=== PATIENT | male | born 1935 | race Caucasian/White ===

== ENCOUNTER 2016-07-20 21:11 | Inpatient (IN) | payer MEDICARE, OTHER ==
--- NOTE | ~2016-07-20 | HP ---
History And Physical [place] [id number] [facility] [place]. [address] NAME: KARY REID : [id number] STATUS : ADM IN [facility]#: [id number] AGE: 81 ADM/REG DATE : 07/21/16 MR#: [id number] REPORT SERV DATE: 07/21/16 DICTATED BY: MAE CLANCY DATE: 07/21/16 REPORT STATUS : Draft TRANSCRIBED BY: MODL DATE: 07/21/16 DATE OF ADMISSION: 07/20/2016 POINT OF ENTRY: [facility] Emergency Department. PRIMARY ORTHOPEDIC SURGEON: Shakir Allen M.D. CHIEF COMPLAINT: Fevers and right lower extremity erythema and swelling. HISTORY OF PRESENT ILLNESS: Mr. Santiago is an 81-year-old gentleman with history of hypertension, osteoarthritis, and BPH who underwent bilateral total knee arthroplasty with Dr. Allen on 06/22/2016. The patient states his postoperative course was largely uncomplicated. He spent approximately a week and a half at [facility] and then was discharged to home where he continue to work with physical therapy. The patient states he started to notice fevers as well as right lower extremity swelling, erythema, and tenderness beginning about Tuesday. The fevers were as high as 102 to 103 degrees Fahrenheit. The patient notified his orthopedic surgeon Dr. Allen today and was seen in clinic by one of his partners. At that time, the area of erythema and swelling was marked with a marker. The patient underwent arthrocentesis in the office at that time which revealed a grossly bloody fluid and was placed on some oral Duricef for antibiotic treatment. The fluid analysis at that time did reveal grossly bloody fluid with 199,000 red blood cells with 526 nucleated cells. The patient returned to the emergency department as the erythema, swelling, and tenderness involving his right lower extremity spread from the areas marked which was primarily around his knee joint to involve the entire right lower extremity from his ankle joint to his upper thigh. Initial evaluation in the emergency department is notable for evidence of sepsis with a fever of 102.2 degrees Fahrenheit as well as a white count of 17,200. Lactic acid within normal limits. Chest x-ray was clear. Blood cultures were obtained. He was started on vancomycin and admitted to the Hospitalist Service for further evaluation and management. REVIEW OF SYSTEMS: Comprehensive review of systems otherwise negative unless listed in the history of present illness. PREVIOUS MEDICAL HISTORY: 1. Hypertension. 2. Gastroesophageal reflux disease. 3. Osteoarthritis. 4. BPH. PREVIOUS SURGICAL HISTORY: 1. Bilateral total knee, 06/22/[address] Allen. 2. Left total hip. History And Physical [address] [address] NAME: KARY REID : [id number] STATUS : ADM IN PAT#: [id number] AGE: 81 ADM/REG DATE : 07/21/16 MR#: [id number] REPORT SERV DATE: 07/21/16 DICTATED BY: MAE CLANCY DATE: 07/21/16 REPORT STATUS : Draft TRANSCRIBED BY: MODNae DATE: 07/21/16 3. Cervical spinal fusion. 4. Inguinal hernia repair. ALLERGIES: NO KNOWN DRUG ALLERGIES. HOME MEDICATIONS: 1. Norvasc 5 mg daily. 2. Aspirin 325 mg daily. 3. Finasteride 5 mg daily. 4. Hydrochlorothiazide 12.5 mg daily. 5. [place] 5/325 one tab q.4 hours p.r.n. 6. Meloxicam 15 mg daily. 7. Nortriptyline 50 mg at bedtime. 8. Omeprazole 20 mg daily. 9. Flomax 0.4 mg daily. 10.Icma-xmk-wlaahio vitamin. 11.PreserVision 2 tablets daily. SOCIAL HISTORY: Denies any tobacco, alcohol, or illicits. FAMILY MEDICAL HISTORY: Mother with dementia. Father with throat cancer, diabetes. Siblings with diabetes. LABS AND IMAGIN. White count 17.2, hemoglobin is 10.0, hematocrit is 29.4, platelet count is 249, INR is pending. 2. Sodium is 136, potassium 3.9, chloride 102, carbon dioxide 24, BUN 17, creatinine 0.82, glucose is 136, calcium is 8.4, protein is 6.8, albumin is 2.8, bilirubin is 1.1, ALT is 15, AST is 16, alkaline phosphatase is 93. 3. Lactic acid is 0.8. 4. Chest x-ray per my review shows some right lower lobe atelectasis, otherwise no acute cardiopulmonary abnormality. 5. Synovial fluid analysis from earlier arthrocentesis done in [facility]opedic [facility] again shows 199,000 red blood cells per mL as well as 526 nucleated cells per mL with 5% segs, 41% lymphocytes, and 54% mononuclear cells. Initial Gram stain and culture of the arthrocentesis fluid shows rare white blood cells with no organisms seen with culture in progress. PHYSICAL EXAMINATION: VITAL SIGNS: Temperature is 102.2 degrees Fahrenheit, pulse is 89, respirations 22, saturating 96% on room air. Blood pressure is 126/69 on recheck is now 124/70, pulse of 87. GENERAL: The patient is awake, alert, in no acute distress. Resting comfortably. He is a well-developed, well-nourished, elderly male. Family is at bedside. HEENT: Atraumatic and normocephalic. Moist mucous membranes. Pupils are equal, round, reactive to light and accommodation. Extraocular eye movements intact. No scleral icterus. NECK: No jugular venous distention. No carotid bruits. CARDIAC: Regular rate and rhythm. No murmurs rubs or gallops. Normal S1 and S2. History And Physical [address] [address] NAME: KARY REID : 37 STATUS : ADM IN [facility]#: [id number] AGE: 81 ADM/REG DATE : 07/21/16 MR#: [id number] REPORT SERV DATE: 07/21/16 DICTATED BY: MAE CLANCY DATE: 07/21/16 REPORT STATUS : Draft TRANSCRIBED BY: SUBHA DATE: 07/21/16 LUNGS: Clear to auscultation bilaterally. No wheezes, rhonchi, or crackles. ABDOMEN: Soft, nontender, nondistended with good bowel sounds. No rebound, guarding, or rigidity. EXTREMITIES: Left lower extremity is warm and well perfused with no cyanosis, clubbing, or edema. The incision appears to be clean, dry, and intact. Right lower extremity, the patient has 1+ lower extremity edema primarily around the pedal region and distal left lower extremity. He has erythema from the distal right lower extremity spreading proximally involving the area around the knee joint and ending approximately mid to upper thigh region. The patient does have some area of palpable right knee joint effusion. I do not appreciate any palpable fluid collections or crepitus. SKIN: Warm and dry except as noted above. PSYCHIATRIC: Affect is appropriate. NEUROLOGIC: Alert and oriented x3. Cranial nerves II through XII grossly intact. Speech is normal. Gait is not assessed. ASSESSMENT: Mr. Reid is an 81-year-old gentleman about a month status post bilateral total knee arthroplasty, who presents now with a four-day history of fevers and right lower extremity pain, swelling, and erythema concerning for right lower extremity cellulitis as well as prosthetic joint septic arthritis, also with evidence of sepsis. PROBLEM LIST: 1. Sepsis. 2. Right lower extremity cellulitis. 3. Prosthetic joint septic arthritis. 4. Hemarthrosis. PLAN: 1. Sepsis. The patient meets criteria with leukocytosis as well as fevers. Lactic acid within normal limits. We will check a procalcitonin. Follow up blood cultures obtained here in the emergency department as well as provide broad-spectrum IV antibiotics as well as IV fluids. 2. Lower extremity cellulitis. We will continue broad-spectrum antibiotics started here in the emergency department. We will consult Dr. Allen as well as Infectious Diseases for assistance. 3. 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 Given erythema involving the knee area as well as joint effusion with evidence of infection, I am concerned for septic arthritis. The patient did have arthrocentesis done in the office which did reveal minimal nucleated cells; however, culture is pending, and I think it is difficult to interpret the fluid analysis in the setting of such significant hemarthrosis. We will place the patient on broad-spectrum antibiotics of IV vancomycin and Zosyn. Dr. Allen of Orthopedic Surgery is already aware of the patient and will see the patient in the morning. We will also consult ID for assistance. We will obtain a plain film of the right knee as well as lower extremity Doppler to rule out any type of other injuries that could cause effusion as well as rule out DVT as a potential cause of his erythema and lower extremity swelling and pain. 4. Hemarthrosis. Again arthrocentesis in office was concerning for significant bloody fluid removed which was confirmed by synovial fluid analysis. The patient was recently History And Physical [address] [place]. [address] NAME: KARY REID : 37 STATUS : ADM IN [facility]#: [id number] AGE: 81 ADM/REG DATE : 07/21/16 MR#: [id number] REPORT SERV DATE: 07/21/16 DICTATED BY: MAE CLANCY DATE: 07/21/16 REPORT STATUS : Draft TRANSCRIBED BY: SUBHA DATE: 07/21/16 tapered off his Coumadin as DVT prophylaxis. We will hold his aspirin as well as NSAID and place him on TEDs and SCDs for DVT prophylaxis at this time given significant amount of hemarthrosis. We will defer management to Dr. Allen. 5. DVT prophylaxis. TEDs and SCDs as noted above. CODE STATUS: The patient wishes to be full code. JUAN ANTONIO/SUBHA Mae Clancy MD / [id number] CC: MD Shakir Vigil M.D.
--- NOTE | ~2016-07-20 | DS ---
Discharge Summary [facility] [address] [place]. [address] NAME: KARY LOCKE : 37 STATUS : DIS IN PAT#: [id number] AGE: 81 ADM/REG DATE : 07/21/16 MR#: [id number] REPORT SERV DATE: 07/28/16 DICTATED BY: TIFFANIE SANDS DATE: 07/27/16 REPORT STATUS : Draft TRANSCRIBED BY: MODL DATE: 07/27/16 ADMISSION DATE: 07/21/2016 DISCHARGE DATE: 07/27/2016 HISTORY OF PRESENT ILLNESS: The patient is an 81-year-old male with a history of hypertension, BPH, GERD, who presented to the hospital with a complaint of fevers and right lower extremity erythema and swelling. For further details, please refer to H and P dictated by Dr. Santos on 07/21/2016. HOSPITAL COURSE: Upon admission to the hospital, the patient was noted to be septic and was subsequently admitted to the hospital on the Hospitalist Service. It was also noted that his sepsis was likely due to lower extremity cellulitis given his recent orthopedic procedure. Orthopedic Surgery was consulted. The patient was taken by Orthopedic surgery to the OR on 07/22/2016 for right knee aspiration with subsequent open irrigation and debridement of prepatellar bursa which was performed by Dr. Allen. For further details, please refer to operative note dictated by Dr. Allen on 07/22/2016. Given the patient's septic picture in the setting of recent orthopedic procedure, Infectious Disease was consulted to assist with IV antibiotics. For further details, please refer to consultation note dictated by Dr. Ryan on 07/21/2016. After Infectious Disease evaluation, the patient's antibiotic therapy was narrowed by Infectious Disease. The patient has responded well to current antibiotic therapy. The patient has remained hemodynamically stable. Given completion of workup, plan was for patient to be discharged to rehab facility on antibiotic therapy. The patient was ready for discharge yesterday; however, there was no bed availability in the rehab facility that was selected for the patient which is [facility]. Of note, I assumed care of the patient today, 07/27/2016. At the time of my assumption of care, the patient was hemodynamically stable. Plan was already made for the patient to be discharged on IV antibiotics specifically Ancef 2 g IV q.8 hours for 7 days and then Duricef 1 g p.o. for 14 days. Orders were written by Infectious Disease. Medication reconciliation was performed by nurse practitioner for Orthopedic Surgery. From a medical standpoint, the patient has remained hemodynamically stable with resolution of his sepsis. Given completion of workup and given clearance by Infectious Disease, the patient will be discharged to rehab. Plan has been discussed with the patient who voices understanding and is agreeable with this plan. DISCHARGE DIAGNOSES: 1. Sepsis. 2. Leukocytosis. 3. Hypertension. 4. Gastroesophageal reflux disease. 5. Benign prostatic hyperplasia. 6. Status post right knee irrigation and debridement of prepatellar bursa. CONSULTANTS: 1. Tiffanie Allen MD, of Orthopedic Surgery. 2. Arun Ryan MD, of Infectious Disease. Discharge Summary [address] [address] NAME: KARY LOCKE : 37 STATUS : DIS IN PAT#: [id number] AGE: 81 ADM/REG DATE : 07/21/16 MR#: [id number] REPORT SERV DATE: 07/28/16 DICTATED BY: TIFFANIE SANDS DATE: 07/27/16 REPORT STATUS : Draft TRANSCRIBED BY: SUBHA DATE: 07/27/16 DISCHARGE MEDICATIONS: Discharge medications performed by the Orthopedic Service. Please see discharge MAR for further details. DISPOSITION: This patient will be discharged to [facility] for rehab, to follow up with Infectious Disease and Orthopedic Surgery as an outpatient. ACTIVITY: As tolerated. DIET: Regular. Greater than 30 minutes was spent on chart review, coordinating discharge, dictation of note, discussion of case with case management. JAY/SUBHA Tiffanie Sands MD / [id number] CC: MD Hiren Bradshaw MD
--- NOTE | ~2016-07-20 | CN ---
Consultation Report [facility] [address] [place]. [address] NAME: KARY LOCKE : 37 STATUS : ADM IN PAT#: [id number] AGE: 81 ADM/REG DATE : 07/21/16 MR#: [id number] REPORT SERV DATE: 07/21/16 DICTATED BY: BELINDA RYAN DATE: 07/21/16 REPORT STATUS : Draft TRANSCRIBED BY: MODL DATE: 07/21/16 INFECTIOUS DISEASE CONSULT DATE OF CONSULTATION: 07/21/2016 REASON FOR CONSULTATION: Right lower extremity cellulitis in patient with recent knee arthroplasty. HISTORY OF PRESENT ILLNESS: This is a pleasant, 81-year-old man who has a history of osteoarthritis and underwent bilateral total knee arthroplasties by Dr. Allen on 06/22/2016. He was doing well and making progress with physical therapy when around 07/16/2016, he just did not feel well in general. Then on 07/17/2016 and 07/18/2016, he developed some fevers and chills and area of increasing redness over the right knee and upper leg. He was seen in the office yesterday and underwent arthrocentesis with grossly bloody joint fluid obtained. He was felt to have cellulitis and given Duricef and took one dose of this but the extent of the redness worsened to involve much of the lower leg and also extended into the thigh and therefore, he presented to the emergency department and was admitted. He was found to have a white blood cell count of 17.2 and was mildly tachypneic with a respiratory rate of 22. After blood cultures were obtained, he was started on empiric antibiotics with vancomycin and Zosyn. The patient underwent right lower extremity ultrasound today, which showed no evidence of DVT and was evaluated also by Dr. Allen who felt that his exam and results of the arthrocentesis were almost consistent with cellulitis without involvement of the joint space. He does feel better today. He denies any previous history of cellulitis. PAST MEDICAL HISTORY: In addition notable for hypertension, BPH, gastroesophageal reflux, left total hip replacement, and cervical spine fusion. ALLERGIES: NONE. OUTPATIENT MEDICATIONS: Included Norvasc, aspirin, Proscar, hydrochlorothiazide, p.r.n. hydrocodone, Mobic, Pamelor, Prilosec, Flomax, and vitamins. SOCIAL HISTORY: The patient lives with his . Nonsmoker. Nondrinker. They do have some goats. Daughter is here in the room with him. FAMILY HISTORY: Notable for mother with dementia. Father with diabetes. REVIEW OF SYSTEMS: Otherwise negative. No nausea, vomiting, diarrhea, chest pain, or shortness of breath. PHYSICAL EXAMINATION: VITAL SIGNS: The patient weighs 91 kg. His highest fever since admission has been 102.2. He is presently afebrile. Pulse is 72. Respiratory rate at present is 16. HEAD AND NECK: Oral cavity is clear. There is no thrush. Supple neck. Consultation Report [place] [id number] [facility] [place]. [address] NAME: KARY LOCKE : 37 STATUS : ADM IN [facility]#: [id number] AGE: 81 ADM/REG DATE : 07/21/16 MR#: [id number] REPORT SERV DATE: 07/21/16 DICTATED BY: BELINDA RYAN DATE: 07/21/16 REPORT STATUS : Draft TRANSCRIBED BY: SUBHA DATE: 07/21/16 LUNGS: Clear to auscultation except a few bibasilar rhonchi. CARDIAC: Regular rate and rhythm. Normal S1, S2 without murmur, gallop, or rub. ABDOMEN: Shows active bowel sounds. Soft and nontender. EXTREMITIES: The patient has cellulitic changes of the right lower extremity extending from the medial thigh down toward the ankle. The most intense area of erythema is over the right knee anteriorly and medially extending down to just below the knee. There is soft tissue edema and evidence of a joint effusion on physical exam. The patient has decreased range of motion, but he can actively flex and extend his knee without severe pain. The skin on the lower leg is somewhat dry. The left knee shows no signs of inflammation. The surgical wounds have healed well. LABORATORY STUDIES: White blood cell count today 16.0, hemoglobin 9.5, platelets 235, procalcitonin 0.20 on admission, creatinine 0.77. Liver function tests normal. Lactate 0.8. Albumin 2.8. Arthrocentesis result showed a red blood cell count of 199,000, white blood cells 526 with a differential of 54% monocytes, 41% lymphocytes, and 5% neutrophils. The culture from the arthrocentesis is negative to date. Gram stain had rare white blood cells and no crystals and no organisms. Blood cultures are negative to date. These were obtained after the first dose of the outpatient cefadroxil. Urinalysis is negative. IMPRESSION: Right lower extremity cellulitis with sepsis on admission in a patient with recent total knee arthroplasty. Overall, I agree with Dr. Allen that he probably does not have septic arthritis, although this is obviously a potential concern. His arthrocentesis results along with his physical exam are not strongly suggestive of involvement of the joint. I suspect the cellulitis is a strep or Staph in origin. PLAN: 1. We will continue vancomycin pending final blood culture and arthrocentesis culture results. 2. Discontinue Zosyn. 3. We will reassess each day regarding the duration of IV antibiotics in this setting. WAI/MODNae Belinda Ryan M.D. / [id number] CC: MD Hiren Appiah MD John Nash, M.D.
--- NOTE | ~2016-07-20 | OP ---
Record Of Operation [facility] [address] [place]. [address] NAME: KARY LOCKE : 37 STATUS : ADM IN PAT#: [id number] AGE: 81 ADM/REG DATE : 07/21/16 MR#: [id number] REPORT SERV DATE: 07/23/16 DICTATED BY: TIFFANIE ALLEN DATE: 07/22/16 REPORT STATUS : Draft TRANSCRIBED BY: MODL DATE: 07/22/16 DATE OF PROCEDURE: 07/22/2016 PREOPERATIVE DIAGNOSIS: Right septic prepatellar bursitis, status post total knee arthroplasty. POSTOPERATIVE DIAGNOSIS: Right septic prepatellar bursitis, status post total knee arthroplasty. PROCEDURE PERFORMED: Right knee aspiration with subsequent open irrigation debridement of prepatellar bursa. SURGEON: Tiffanie Allen M.D. ANESTHESIA: Spinal with sedation. PROCEDURE IN DETAIL: The patient was clearly identified. After obtaining informed consent, he was brought to the operating room at [facility], where he was induced under spinal anesthesia. He had his right lower extremity prepped and draped in the usual manner. After appropriate time-out, procedure was performed, elevation exsanguination was performed, tourniquet elevated, and through a superolateral aspiration site to the knee, an area completely uninvolved with erythema or fullness. Approximately 50 mL of old chronic- appearing blood was removed from the knee. There was no evidence of any streaking, pus, or other pathology after this was carefully examined. This concluded the mid to superior portion of the prior incision that was then divided into the subcutaneous tissues and carefully dissected medially whereupon abscess pockets encountered consistent with a prepatellar septic bursitis or regional abscess. There was minimal pressure, but the incision was extended and the area was completely cleansed. Copious irrigation was performed. Curettage and rongeur were utilized to remove any semblance of necrotic tissues, and subsequently with the tissues looking rather good and after copious irrigation was performed, tourniquet was deflated during this. A Grabiel/MALINA drain applied, and wound was then carefully closed in layers whereupon the leg was cleansed and dressed. The patient was allowed to awaken and transferred to the recovery room in stable condition having tolerated the procedure well, and of note, very intense examination was performed to all the soft tissues to see if there was any possibility of the connection to the joint. This even remotely possible such that an open irrigation the joint itself would be done. However, there was none found. ESTIMATED BLOOD LOSS: 10 mL. FLUIDS: 500 mL. TOURNIQUET TIME: 19 minutes. PATHOLOGY: None. Record Of Operation [address] [place]. [address] NAME: KARY LOCKE : 37 STATUS : ADM IN [facility]#: [id number] AGE: 81 ADM/REG DATE : 07/21/16 MR#: [id number] REPORT SERV DATE: 07/23/16 DICTATED BY: TIFFANIE ALLEN DATE: 07/22/16 REPORT STATUS : Draft TRANSCRIBED BY: SUBHA DATE: 07/22/16 MICROBIOLOGY: Sent specimen. COMPLICATIONS: None. SPONGE AND NEEDLE COUNTS: Reportedly correct. ANTIBIOTICS: Administered as they have been on his current schedule for his presenting cellulitis. CAROLINA/SUBHA Tiffanie Allen M.D. / [id number] CC: MD Walter Appiah, ALTO [employer]INGER
[2016-07-20 18:58] LABS: BD FL LYMPH (NOT ORD) 41 %; BF BASO (NOT OF) 0 %; BF LARGE MONONUCLEAR 54 %; BODY FLUID EOS (NOT ORD) 0 %; BODY FLUID SEG (NOT ORD) 5 %
[2016-07-20 18:59] LABS: BD FL SOURCE (NOT ORD) RT KNEE; BF TOTAL CELL CT (NOT ORD 526 /MM3; BODY FLUID RBC (NOT ORD) 199000 /MM3
[~2016-07-20 21:11] MED LIST: ALPHA LIPOIC300 MG PO; BION TEARS OPH; DYMISTA NASAL S23 GM NAS; FLOMAX4 PO; FLONASE NAS; HYDROCHLOROT12.5 MG PO; LUBRIFRESH OPH; MOBIC15 MG PO; MULTIPLE VIT PO; NOR25 PO; NORV10 PO; PRILO PO; PROSCAR5 PO; SALINE NOSE SPRAY; [UNRECOGNIZED DRUG - CODE] TOP; [UNRECOGNIZED DRUG - REMARK] PO
[2016-07-20 22:42] LABS: BASOPHILS 0.1 %; BASOPHILS ABSOLUTE 0.02 10/3/uL (0.0-0.16); EOSINOPHILS 0.1 %; EOSINOPHILS ABSOLUTE 0.01 10/3/uL (0.0-0.53); HEMATOCRIT 29.4 % (40.0-51.0); IMMATURE GRANULOCYTES 0.3 %; IMMATURE GRANULOCYTES ABSOLUTE 0.05 10/3/uL (0.0-0.11); LYMPHOCYTES 14.1 %; LYMPHOCYTES ABSOLUTE 2.42 10/3/uL (0.67-4.30); MEAN CORPUSCULAR HEMOGLOB 30.1 pg (26.0-34.0); MEAN CORPUSCULAR VOLUME 88.6 fL (80-100); MEAN PLATELET VOLUME 9.9 fL (9.2-13.0); MONOCYTES 9.6 %; MONOCYTES ABSOLUTE 1.64 10/3/uL (0.21-1.20); NEUTROPHILS 75.8 %; NEUTROPHILS ABSOLUTE 13.02 10/3/uL (2.02-8.40); RBC DISTRIBUTION WIDTH 14.2 % (12.0-16.0)
[2016-07-20 22:43] LABS: MANUAL DIFF NO %; PLATELET COUNT 249 10/3/uL (150-400); RED CELL COUNT 3.32 10/6/uL (4.7-6.1); WHITE BLOOD CELLS 17.2 10/3/uL (4.5-10.5)
[2016-07-20 22:58] LABS: BUN (BLOOD UREA NITROGEN) 17 MG/DL (6-23); CALCIUM, SERUM 8.4 MG/DL (8.5-10.4); CHLORIDE, SERUM 102 MMOL/L (96-112); CO2 (CARBON DIOXIDE) 24 MMOL/L (24-34); CREATININE 0.82 MG/DL (0.70-1.30); GFR AFRICAN AMERICAN 97 ML/MIN (>=60); GFR NON AFRICAN AMERICAN 84 ML/MIN (>=60); POTASSIUM, SERUM 3.9 MMOL/L (3.5-5.3); SGOT(AST) 16 U/L (5-40); SGPT(ALT) 15 U/L (5-65); SODIUM, SERUM 136 MMOL/L (135-148); TOTAL BILIRUBIN 1.1 MG/DL (0-1.2); TOTAL PROTEIN 6.8 G/DL (6.0-8.5)
[2016-07-20 22:59] LABS: A/G RATIO 0.7 (0.7-1.9); ALBUMIN 2.8 G/DL (3.5-5.0); ALKALINE PHOSPHATASE 93 U/L (45-117); GLUCOSE, SERUM 136 MG/DL (60-99); LACTATE 0.8 MMOL/L (0.3-2.4)
[2016-07-21] MEDS ORDERED: NORCO1 TA1 PO (00:01)
[2016-07-21] MEDS ORDERED: NOR50 PO (00:01)
[2016-07-21] MEDS ORDERED: ASABAYER PO (00:01)
[2016-07-21] MEDS ORDERED: NORV5 PO (00:02)
[2016-07-21] MEDS ORDERED: FLOMAX4 PO (00:02)
[2016-07-21] MEDS ORDERED: MOBIC15 MG PO (00:03)
[2016-07-21] MEDS ORDERED: PRILO PO (00:03)
[2016-07-21] MEDS ORDERED: HYDROCHLOROT25 MG PO (00:03)
[2016-07-21] MEDS ORDERED: PROSCAR5 PO (00:03)
[2016-07-21] MEDS ORDERED: PRESERVISION A1 EAC1 PO (00:04)
[2016-07-21 00:55] LABS: ASCORBIC ACID (UR NOT ORDER) NEG (NEG); BILIRUBIN, URINE NEGATIVE (NEG); ER URINALYSIS TAT 0 Hrs 00 Mins; KETONE, URINE NEGATIVE (NEG); LEUKOCYTE ESTERASE(NOT OR NEG (NEG); NITRITE (URINE) NEG (NEG); WBC (NOT ORDERED) (RFLEX) 1 (0-5)
[2016-07-21 08:21] LABS: BASOPHILS 0.2 %; BASOPHILS ABSOLUTE 0.03 10/3/uL (0.0-0.16); EOSINOPHILS 0.7 %; EOSINOPHILS ABSOLUTE 0.11 10/3/uL (0.0-0.53); HEMATOCRIT 28.2 % (40.0-51.0); HEMOGLOBIN 9.5 g/dL (13.6-17.8); IMMATURE GRANULOCYTES 0.4 %; IMMATURE GRANULOCYTES ABSOLUTE 0.07 10/3/uL (0.0-0.11); LYMPHOCYTES 13.6 %; LYMPHOCYTES ABSOLUTE 2.18 10/3/uL (0.67-4.30); MEAN CORPUS HGB CONC 33.7 g/dL (32.0-36.0); MEAN CORPUSCULAR HEMOGLOB 30.1 pg (26.0-34.0); MEAN CORPUSCULAR VOLUME 89.2 fL (80-100); MEAN PLATELET VOLUME 10.3 fL (9.2-13.0); MONOCYTES 8.7 %; NEUTROPHILS 76.4 %; NEUTROPHILS ABSOLUTE 12.23 10/3/uL (2.02-8.40); PLATELET COUNT 235 10/3/uL (150-400); RBC DISTRIBUTION WIDTH 13.9 % (12.0-16.0); RED CELL COUNT 3.16 10/6/uL (4.7-6.1)
[2016-07-21 08:23] LABS: MANUAL DIFF NO %
[2016-07-21 08:29] LABS: PARTIAL THROMBO TIME 52.4 SEC (22.5-37.2)
[2016-07-21 08:34] LABS: BUN (BLOOD UREA NITROGEN) 17 MG/DL (6-23); CALCIUM, SERUM 7.6 MG/DL (8.5-10.4); CHLORIDE, SERUM 102 MMOL/L (96-112); CO2 (CARBON DIOXIDE) 25 MMOL/L (24-34); CREATININE 0.77 MG/DL (0.70-1.30); GFR AFRICAN AMERICAN 99 ML/MIN (>=60); GFR NON AFRICAN AMERICAN 86 ML/MIN (>=60); GLUCOSE, SERUM 127 MG/DL (60-99); POTASSIUM, SERUM 3.8 MMOL/L (3.5-5.3); SODIUM, SERUM 136 MMOL/L (135-148)
[2016-07-21 10:03] LABS: PROCALCITONIN 0.32 ng/mL (<0.5)
[2016-07-22 06:24] LABS: BASOPHILS 0.1 %; BASOPHILS ABSOLUTE 0.02 10/3/uL (0.0-0.16); EOSINOPHILS 1.4 %; EOSINOPHILS ABSOLUTE 0.19 10/3/uL (0.0-0.53); HEMATOCRIT 27.6 % (40.0-51.0); HEMOGLOBIN 9.3 g/dL (13.6-17.8); IMMATURE GRANULOCYTES 0.4 %; IMMATURE GRANULOCYTES ABSOLUTE 0.05 10/3/uL (0.0-0.11); LYMPHOCYTES 17.6 %; LYMPHOCYTES ABSOLUTE 2.46 10/3/uL (0.67-4.30); MEAN CORPUS HGB CONC 33.7 g/dL (32.0-36.0); MEAN CORPUSCULAR HEMOGLOB 30.2 pg (26.0-34.0); MEAN CORPUSCULAR VOLUME 89.6 fL (80-100); MEAN PLATELET VOLUME 10.2 fL (9.2-13.0); MONOCYTES 7.5 %; MONOCYTES ABSOLUTE 1.05 10/3/uL (0.21-1.20); NEUTROPHILS ABSOLUTE 10.17 10/3/uL (2.02-8.40); PLATELET COUNT 228 10/3/uL (150-400); RBC DISTRIBUTION WIDTH 13.9 % (12.0-16.0); RED CELL COUNT 3.08 10/6/uL (4.7-6.1); WHITE BLOOD CELLS 13.9 10/3/uL (4.5-10.5)
[2016-07-22 06:26] LABS: MANUAL DIFF NO %
[2016-07-22 06:34] LABS: CHLORIDE, SERUM 102 MMOL/L (96-112); CO2 (CARBON DIOXIDE) 27 MMOL/L (24-34); CREATININE 0.68 MG/DL (0.70-1.30); GFR AFRICAN AMERICAN 105 ML/MIN (>=60); GFR NON AFRICAN AMERICAN 90 ML/MIN (>=60); POTASSIUM, SERUM 3.8 MMOL/L (3.5-5.3); SODIUM, SERUM 136 MMOL/L (135-148)
[2016-07-22 06:36] LABS: BUN (BLOOD UREA NITROGEN) 13 MG/DL (6-23); GLUCOSE, SERUM 95 MG/DL (60-99)
[2016-07-22 17:36] LABS: INTERNATIONAL NORMAL RATI 1.3 UNITS (-); PROTIME (NOT ORD) 16.1 SEC (12.0-14.5)
[2016-07-23 08:43] LABS: HEMATOCRIT 26.2 % (40.0-51.0); HEMOGLOBIN 8.9 g/dL (13.6-17.8)
[2016-07-23 08:58] LABS: BUN (BLOOD UREA NITROGEN) 11 MG/DL (6-23); CALCIUM, SERUM 7.9 MG/DL (8.5-10.4); CHLORIDE, SERUM 99 MMOL/L (96-112); CO2 (CARBON DIOXIDE) 27 MMOL/L (24-34); CREATININE 0.73 MG/DL (0.70-1.30); GFR AFRICAN AMERICAN 102 ML/MIN (>=60); GFR NON AFRICAN AMERICAN 88 ML/MIN (>=60); GLUCOSE, SERUM 93 MG/DL (60-99); POTASSIUM, SERUM 3.7 MMOL/L (3.5-5.3); SODIUM, SERUM 135 MMOL/L (135-148)
[2016-07-24 06:27] LABS: BASOPHILS 0.1 %; BASOPHILS ABSOLUTE 0.01 10/3/uL (0.0-0.16); EOSINOPHILS 2.1 %; HEMATOCRIT 25.4 % (40.0-51.0); HEMOGLOBIN 8.8 g/dL (13.6-17.8); IMMATURE GRANULOCYTES 0.1 %; IMMATURE GRANULOCYTES ABSOLUTE 0.01 10/3/uL (0.0-0.11); LYMPHOCYTES 31.7 %; LYMPHOCYTES ABSOLUTE 2.95 10/3/uL (0.67-4.30); MEAN CORPUS HGB CONC 34.6 g/dL (32.0-36.0); MEAN CORPUSCULAR HEMOGLOB 29.7 pg (26.0-34.0); MEAN PLATELET VOLUME 9.8 fL (9.2-13.0); MONOCYTES 7.6 %; MONOCYTES ABSOLUTE 0.71 10/3/uL (0.21-1.20); NEUTROPHILS 58.4 %; NEUTROPHILS ABSOLUTE 5.44 10/3/uL (2.02-8.40); PLATELET COUNT 259 10/3/uL (150-400); RED CELL COUNT 2.96 10/6/uL (4.7-6.1); WHITE BLOOD CELLS 9.3 10/3/uL (4.5-10.5)
[2016-07-24 06:33] LABS: MANUAL DIFF NO %; MEAN CORPUSCULAR VOLUME 85.8 fL (80-100)
[2016-07-24 06:39] LABS: CHLORIDE, SERUM 100 MMOL/L (96-112); CO2 (CARBON DIOXIDE) 28 MMOL/L (24-34); CREATININE 0.73 MG/DL (0.70-1.30); GFR AFRICAN AMERICAN 102 ML/MIN (>=60); GFR NON AFRICAN AMERICAN 88 ML/MIN (>=60); POTASSIUM, SERUM 3.6 MMOL/L (3.5-5.3); SODIUM, SERUM 138 MMOL/L (135-148)
[2016-07-24 06:41] LABS: BUN (BLOOD UREA NITROGEN) 15 MG/DL (6-23)
[2016-07-24 06:42] LABS: GLUCOSE, SERUM 104 MG/DL (60-99)
[2016-07-25 05:40] LABS: BASOPHILS 0.3 %; BASOPHILS ABSOLUTE 0.02 10/3/uL (0.0-0.16); EOSINOPHILS 2.4 %; EOSINOPHILS ABSOLUTE 0.18 10/3/uL (0.0-0.53); HEMATOCRIT 26.5 % (40.0-51.0); IMMATURE GRANULOCYTES 0.4 %; IMMATURE GRANULOCYTES ABSOLUTE 0.03 10/3/uL (0.0-0.11); LYMPHOCYTES 36.3 %; LYMPHOCYTES ABSOLUTE 2.71 10/3/uL (0.67-4.30); MEAN CORPUSCULAR HEMOGLOB 29.2 pg (26.0-34.0); MEAN PLATELET VOLUME 9.6 fL (9.2-13.0); MONOCYTES 9.1 %; MONOCYTES ABSOLUTE 0.68 10/3/uL (0.21-1.20); NEUTROPHILS 51.5 %; NEUTROPHILS ABSOLUTE 3.84 10/3/uL (2.02-8.40); PLATELET COUNT 308 10/3/uL (150-400); RBC DISTRIBUTION WIDTH 14.1 % (12.0-16.0); RED CELL COUNT 3.08 10/6/uL (4.7-6.1); WHITE BLOOD CELLS 7.5 10/3/uL (4.5-10.5)
[2016-07-25 05:43] LABS: MANUAL DIFF NO %
[2016-07-25 05:47] LABS: BUN (BLOOD UREA NITROGEN) 15 MG/DL (6-23); CHLORIDE, SERUM 106 MMOL/L (96-112); CO2 (CARBON DIOXIDE) 28 MMOL/L (24-34); CREATININE 0.72 MG/DL (0.70-1.30); GFR AFRICAN AMERICAN 102 ML/MIN (>=60); GFR NON AFRICAN AMERICAN 88 ML/MIN (>=60); POTASSIUM, SERUM 3.9 MMOL/L (3.5-5.3); SODIUM, SERUM 141 MMOL/L (135-148)
[2016-07-25 05:49] LABS: GLUCOSE, SERUM 98 MG/DL (60-99)
[2016-07-26 06:30] LABS: BASOPHILS 0.4 %; BASOPHILS ABSOLUTE 0.03 10/3/uL (0.0-0.16); EOSINOPHILS 3.6 %; EOSINOPHILS ABSOLUTE 0.27 10/3/uL (0.0-0.53); HEMATOCRIT 28.8 % (40.0-51.0); HEMOGLOBIN 9.4 g/dL (13.6-17.8); IMMATURE GRANULOCYTES 0.3 %; IMMATURE GRANULOCYTES ABSOLUTE 0.02 10/3/uL (0.0-0.11); LYMPHOCYTES 39.1 %; LYMPHOCYTES ABSOLUTE 2.94 10/3/uL (0.67-4.30); MEAN CORPUS HGB CONC 32.6 g/dL (32.0-36.0); MEAN CORPUSCULAR HEMOGLOB 28.7 pg (26.0-34.0); MEAN CORPUSCULAR VOLUME 88.1 fL (80-100); MEAN PLATELET VOLUME 9.9 fL (9.2-13.0); MONOCYTES 10.8 %; MONOCYTES ABSOLUTE 0.81 10/3/uL (0.21-1.20); NEUTROPHILS 45.8 %; NEUTROPHILS ABSOLUTE 3.45 10/3/uL (2.02-8.40); PLATELET COUNT 352 10/3/uL (150-400); RED CELL COUNT 3.27 10/6/uL (4.7-6.1); WHITE BLOOD CELLS 7.5 10/3/uL (4.5-10.5)
[2016-07-26 06:31] LABS: MANUAL DIFF NO %
[2016-07-26 06:49] LABS: BUN (BLOOD UREA NITROGEN) 14 MG/DL (6-23); CALCIUM, SERUM 8.7 MG/DL (8.5-10.4); CHLORIDE, SERUM 103 MMOL/L (96-112); CO2 (CARBON DIOXIDE) 28 MMOL/L (24-34); CREATININE 0.77 MG/DL (0.70-1.30); GFR AFRICAN AMERICAN 99 ML/MIN (>=60); GFR NON AFRICAN AMERICAN 86 ML/MIN (>=60); POTASSIUM, SERUM 4.1 MMOL/L (3.5-5.3); SODIUM, SERUM 139 MMOL/L (135-148)
[2016-07-26 06:50] LABS: GLUCOSE, SERUM 92 MG/DL (60-99)
== END 2016-07-27 15:37 | DRG 463 ==
LOC: ER 21:11 → 4SO 07-21 01:08 → 2SO 07-21 02:40
PROVIDERS: Anesthesiology; Emergency Medicine; Internal Medicine; Internal Medicine Infectious Disease; Nurse Practitioner Family; Orthopaedic Surgery; Physician Assistant
PROC: 0S9C3ZX Drainage of Right Knee Joint, Percutaneous Approach, Diagnostic (ICD-10-PCS; 2016-07-22)
PROC: 0JBN0ZZ Excision of Right Lower Leg Subcutaneous Tissue and Fascia, Open Approach (ICD-10-PCS; principal; 2016-07-22 18:00)
DX: T84.53XA Infection and inflammatory reaction due to internal right knee prosthesis, initial encounter (principal); A41.9 Sepsis, unspecified organism; L03.115 Cellulitis of right lower limb; M25.061 Hemarthrosis, right knee; D62 Acute posthemorrhagic anemia; I10 Essential (primary) hypertension; M70.51 Other bursitis of knee, right knee; M19.90 Unspecified osteoarthritis, unspecified site; N40.0 Benign prostatic hyperplasia without lower urinary tract symptoms; Z96.653 Presence of artificial knee joint, bilateral; Y82.9 Unspecified medical devices associated with adverse incidents; K21.9 Gastro-esophageal reflux disease without esophagitis; Z96.642 Presence of left artificial hip joint; Z98.890 Other specified postprocedural states; Z79.82 Long term (current) use of aspirin; Z79.899 Other long term (current) drug therapy; Y92.009 Unspecified place in unspecified non-institutional (private) residence as the place of occurrence of the external cause; Z80.8 Family history of malignant neoplasm of other organs or systems; Z83.3 Family history of diabetes mellitus
CPT/HCPCS: 71010; 73560-RT; 80048; 80053; 80202; 81001; 83605; 83735; 84145; 85014; 85018; 85025; 85610; 85730; 87015; 87040; 87070; 87075; 87077; 87102; 87116; 87186; 87205; 89051; 89060; 93005; 93971; 94640; 96365; 96366; 96375; 97110-GP; 97116-GP; 97161-GP; 97165-GO; 99285; A9270-GY; G8978-CK-GP; G8979-CI-GP; G8987-CK-GO; G8988-CK-GO; G8989-CK-GO; J0690; J1170; J2270; J2405; J2543; J3010; J3370